=== PATIENT | female | born 1995 | race Caucasian/White ===

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

== ENCOUNTER 2017-02-22 23:23 | Emergency (ER) | payer OTHER ==
[~2017-02-22] VITALS: Ht 175.2 cm; Wt 124.7 kg
[~2017-02-22 23:23] MED LIST changes: +LISINOPRIL20 MG PO
[2017-02-22 23:50] LABS: BASO % 0.4 % (0.0-1.0); EOS # 0.2 10*3/uL (0.0-0.4); EOS % 1.8 % (1.0-4.0); HEMATOCRIT 41.4 % (37.0-47.0); HEMOGLOBIN 13.4 g/dl (12.0-16.0); LYMPH # 2.9 10*3/uL (1.3-4.4); LYMPH % 25.8 % (27.0-41.0); MEAN CELL VOLUME 80.2 fl (81.0-99.0); MEAN CORPUSCULAR HGB CONC 32.4 g/dl (33.0-37.0); MEAN PLATELET VOLUME 9.6 fl (9.6-12.3); MONO # 0.6 10*3/uL (0.1-1.0); MONO % 5.1 % (3.0-9.0); NEUT # 7.4 10*3/uL (2.3-7.9); NEUT % 66.6 % (47.0-73.0); PLATELET COUNT AUTOMATED 292 10*3/uL (130-400); RED BLOOD COUNT 5.16 10*6/uL (4.10-5.10); RED CELL DISTRI WIDTH 13.9 % (0-14.5); WHITE BLOOD COUNT 11.1 10*3/uL (4.8-10.8)
[2017-02-23 00:03] LABS: PROTHROMBIN TIME 10.1 SECONDS (9.0-12.4)
[2017-02-23 00:08] LABS: ALBUMIN 3.3 gm/dl (3.1-4.5); ALKALINE PHOSPHATASE 95 U/L (45-117); BILIRUBIN, TOTAL 0.3 mg/dl (0.2-1.0); BUN 11 mg/dl (7-24); CARBON DIOXIDE 26 mmol/L (21-32); CHLORIDE 109 mmol/L (98-107); EST GLOM FILT AFRICAN AMERICAN > 60 ml/min; GLUCOSE 96 mg/dL (65-99); POTASSIUM 3.7 mmol/L (3.5-5.1); SGOT/AST 26 IU/L (3-35); SGPT/ALT 54 U/L (12-78); SODIUM 145 mmol/L (136-145); TOTAL PROTEIN 7.3 gm/dL (6.4-8.2)
[2017-02-23 00:09] LABS: TROPONIN I < 0.015 ng/ml (<0.045)
[2017-02-23] MEDS ORDERED: LISINOPRIL20 MG PO (00:16)
[2017-02-23 00:21] LABS: URINE AMPHETAMINES < 1000 (1000ng/ml); URINE BARBITURATES < 200 (200ng/ml); URINE COCAINE < 300 (300ng/ml)
[2017-02-23 00:40] VITALS: BP 140/80
== END 2017-02-23 00:50 | disposition home or self-care (01) ==
LOC: ED 23:23
PROVIDERS: Student in an Organized Health Care Education/Training Program
DX: I15.9 Secondary hypertension, unspecified (principal); R11.0 Nausea; Z79.899 Other long term (current) drug therapy

== ENCOUNTER 2017-03-13 18:26 | Emergency (ER) | payer OTHER ==
[~2017-03-13] VITALS: Wt 124.7 kg
[2017-03-13 18:33] VITALS: BP 142/102
== END 2017-03-13 19:30 | disposition home or self-care (01) ==
LOC: ED 18:26
DX: Z32.02 Encounter for pregnancy test, result negative (principal)

== ENCOUNTER → 2017-03-23 | Outpatient (CLI) | payer OTHER ==
[2017-03-24 08:14] LABS: HEPATITIS C VIRUS ANTIBODY 0.2 (0.0-0.9); HIV 1+2 AB + HIV1 P24 AG Non Reactive (Non Reactive)
== END | disposition home or self-care (01) ==
LOC: LAB 13:42
PROVIDERS: Pediatrics
DX: M25.474 Effusion, right foot (principal); A64 Unspecified sexually transmitted disease

== ENCOUNTER 2017-08-23 23:30 | Emergency (ER) | payer SELFPAY ==
[~2017-08-23] VITALS: Ht 172.7 cm; Wt 122.5 kg
[2017-08-23 23:39] VITALS: BP 150/95
[2017-08-24 00:39] LABS: BILIRUBIN NEGATIVE (NEGATIVE); BLOOD 3+ (NEGATIVE); CLARITY SL CLOUDY (CLEAR); COLOR YELLOW (YELLOW); GLUCOSE NEGATIVE (NEGATIVE); KETONE TRACE (NEGATIVE); LEUKO ESTERASE NEGATIVE (NEGATIVE); NITRITE NEGATIVE (NEGATIVE); PH 5.5 (5.0-9.0); UROBILINOGEN 0.2 E.U./dl (0.2-1.0)
[2017-08-24 00:45] LABS: BACTERIA 2+; RBC 51-100 rbc/hpf (0-2)
[2017-08-24 00:46] LABS: CALCIUM OXALATE CRYSTALS 1+
== END 2017-08-24 01:04 | disposition home or self-care (01) ==
LOC: ED 23:30
PROVIDERS: Emergency Medicine
DX: Z32.02 Encounter for pregnancy test, result negative (principal); I10 Essential (primary) hypertension; Z79.899 Other long term (current) drug therapy

== ENCOUNTER 2017-12-17 06:37 | Emergency (ER) | payer SELFPAY ==
[~2017-12-17] VITALS: Ht 172.7 cm; Wt 124.7 kg
[2017-12-17 07:39] VITALS: BP 147/95
[2017-12-17 07:43] LABS: BILIRUBIN NEGATIVE (NEGATIVE); BLOOD NEGATIVE (NEGATIVE); CLARITY CLEAR (CLEAR); COLOR YELLOW (YELLOW); GLUCOSE NEGATIVE (NEGATIVE); KETONE NEGATIVE (NEGATIVE); LEUKO ESTERASE NEGATIVE (NEGATIVE); NITRITE NEGATIVE (NEGATIVE); SPECIFIC GRAVITY 1.025 (1.005-1.030); UROBILINOGEN 0.2 E.U./dl (0.2-1.0)
[2017-12-17 07:51] LABS: BACTERIA 2+
[2017-12-17] MEDS ORDERED: TAMIFLU 75MG CA75 MG PO (08:23)
== END 2017-12-17 08:28 | disposition home or self-care (01) ==
LOC: ED 06:37
PROVIDERS: Family Medicine
DX: J10.1 Influenza due to other identified influenza virus with other respiratory manifestations (principal); I10 Essential (primary) hypertension; Z79.899 Other long term (current) drug therapy

== ENCOUNTER → 2018-01-20 | Emergency (ER) | payer SELFPAY ==
[~2018-01-20] VITALS: Ht 172.7 cm; Wt 124.7 kg
[~2018-01-20] MED LIST changes: +TAMIFLU 75MG CA75 MG PO
[2018-01-20 12:11] VITALS: BP 144/79
== END ==
LOC: ED 12:06
DX: O10.911 Unspecified pre-existing hypertension complicating pregnancy, first trimester (principal); O99.211 Obesity complicating pregnancy, first trimester; E66.01 Morbid (severe) obesity due to excess calories; Z3A.01 Less than 8 weeks gestation of pregnancy; Z68.41 Body mass index [BMI] 40.0-44.9, adult; Z79.899 Other long term (current) drug therapy

== ENCOUNTER 2018-02-03 08:15 | Emergency (ER) | payer OTHER ==
[~2018-02-03] VITALS: Ht 172.7 cm; Wt 136.1 kg
[2018-02-03 08:19] VITALS: BP 135/69
[2018-02-03] MEDS ORDERED: PRENATAL TABLE1 EAC2 PO (08:24)
[2018-02-03 08:32] LABS: BASO % 0.4 % (0.0-1.0); EOS # 0.1 10*3/uL (0.0-0.4); EOS % 1.4 % (1.0-4.0); HEMATOCRIT 39.2 % (37.0-47.0); HEMOGLOBIN 12.8 g/dl (12.0-16.0); LYMPH # 2.9 10*3/uL (1.3-4.4); LYMPH % 37.8 % (27.0-41.0); MEAN CELL VOLUME 80.8 fl (81.0-99.0); MEAN CORPUSCULAR HGB 26.4 pg (27.0-31.0); MEAN CORPUSCULAR HGB CONC 32.7 g/dl (33.0-37.0); MEAN PLATELET VOLUME 9.4 fl (9.6-12.3); MONO # 0.4 10*3/uL (0.1-1.0); MONO % 5.1 % (3.0-9.0); NEUT # 4.2 10*3/uL (2.3-7.9); NEUT % 54.9 % (47.0-73.0); PLATELET COUNT AUTOMATED 256 10*3/uL (130-400); RED BLOOD COUNT 4.85 10*6/uL (4.10-5.10); RED CELL DISTRI WIDTH 13.9 % (0-14.5); WHITE BLOOD COUNT 7.7 10*3/uL (4.8-10.8)
[2018-02-03 08:46] LABS: BUN 8 mg/dl (7-24); CHLORIDE 105 mmol/L (98-107); CREATININE 0.53 mg/dL (0.55-1.02); POTASSIUM 3.8 mmol/L (3.5-5.1); SODIUM 139 mmol/L (136-145)
[2018-02-03 08:54] LABS: BILIRUBIN NEGATIVE (NEGATIVE); BLOOD NEGATIVE (NEGATIVE); CLARITY SL CLOUDY (CLEAR); COLOR YELLOW (YELLOW); GLUCOSE NEGATIVE (NEGATIVE); KETONE NEGATIVE (NEGATIVE); LEUKO ESTERASE NEGATIVE (NEGATIVE); NITRITE NEGATIVE (NEGATIVE); PH 5.5 (5.0-9.0); SPECIFIC GRAVITY >= 1.030 (1.005-1.030); UROBILINOGEN 0.2 E.U./dl (0.2-1.0)
[2018-02-03 09:25] LABS: BACTERIA 1+; EPITHELIAL CELLS 31-40; WBC 21-30 wbc/hpf (0-5)
[2018-02-03] MEDS ORDERED: KEFLEX250 MG PO (09:41)
== END 2018-02-03 09:46 | disposition home or self-care (01) ==
LOC: ED 08:15
PROVIDERS: Emergency Medicine
DX: O23.41 Unspecified infection of urinary tract in pregnancy, first trimester (principal); O16.1 Unspecified maternal hypertension, first trimester; O99.211 Obesity complicating pregnancy, first trimester; E66.01 Morbid (severe) obesity due to excess calories; Z3A.01 Less than 8 weeks gestation of pregnancy; Z68.41 Body mass index [BMI] 40.0-44.9, adult; Z79.899 Other long term (current) drug therapy

== ENCOUNTER 2018-03-08 05:19 | Emergency (ER) | payer OTHER ==
[~2018-03-08] VITALS: Ht 172.7 cm; Wt 123.8 kg
[2018-03-08 05:19] VITALS: BP 140/94
[~2018-03-08 05:19] MED LIST changes: +KEFLEX250 MG PO; +PRENATAL TABLE1 EAC2 PO
[2018-03-08 05:48] LABS: BILIRUBIN NEGATIVE (NEGATIVE); BLOOD 3+ (NEGATIVE); CLARITY CLEAR (CLEAR); COLOR YELLOW (YELLOW); GLUCOSE NEGATIVE (NEGATIVE); KETONE NEGATIVE (NEGATIVE); LEUKO ESTERASE NEGATIVE (NEGATIVE); NITRITE NEGATIVE (NEGATIVE); SPECIFIC GRAVITY >= 1.030 (1.005-1.030); UROBILINOGEN 0.2 E.U./dl (0.2-1.0)
[2018-03-08 06:02] LABS: RBC TNTC rbc/hpf (0-2)
== END 2018-03-08 08:01 | disposition home or self-care (01) ==
LOC: ED 05:19
PROVIDERS: Emergency Medicine
DX: O9A.211 Injury, poisoning and certain other consequences of external causes complicating pregnancy, first trimester (principal); S31.41XA Laceration without foreign body of vagina and vulva, initial encounter; O16.1 Unspecified maternal hypertension, first trimester; O99.211 Obesity complicating pregnancy, first trimester; Z3A.10 10 weeks gestation of pregnancy; Z79.899 Other long term (current) drug therapy; Z68.41 Body mass index [BMI] 40.0-44.9, adult; X58.XXXA Exposure to other specified factors, initial encounter; Y93.89 Activity, other specified; Y92.89 Other specified places as the place of occurrence of the external cause; Y99.9 Unspecified external cause status

== ENCOUNTER 2018-08-08 18:14 | Emergency (ER) | payer OTHER ==
[~2018-08-08] VITALS: Wt 149.7 kg
[2018-08-08] MEDS ORDERED: ASPIRIN81 M1 PO (18:25)
[2018-08-08] MEDS ORDERED: LABETALOL HCL100 MG PO (18:25)
[2018-08-08 19:38] LABS: BASO % 0.2 % (0.0-1.0); EOS # 0.2 10*3/uL (0.0-0.4); EOS % 1.5 % (1.0-4.0); HEMOGLOBIN 11.7 g/dl (12.0-16.0); LYMPH % 21.1 % (27.0-41.0); MEAN CELL VOLUME 83.3 fl (81.0-99.0); MEAN CORPUSCULAR HGB 27.1 pg (27.0-31.0); MEAN CORPUSCULAR HGB CONC 32.5 g/dl (33.0-37.0); MEAN PLATELET VOLUME 9.2 fl (9.6-12.3); MONO # 0.6 10*3/uL (0.1-1.0); MONO % 4.3 % (3.0-9.0); NEUT # 10.4 10*3/uL (2.3-7.9); NEUT % 72.2 % (47.0-73.0); PLATELET COUNT AUTOMATED 265 10*3/uL (130-400); RED BLOOD COUNT 4.32 10*6/uL (4.10-5.10); RED CELL DISTRI WIDTH 14.5 % (0-14.5); WHITE BLOOD COUNT 14.3 10*3/uL (4.8-10.8)
[2018-08-08 19:53] LABS: ALBUMIN 2.6 gm/dl (3.1-4.5); ALKALINE PHOSPHATASE 109 U/L (45-117); BUN 9 mg/dl (7-24); CHLORIDE 105 mmol/L (98-107); CREATININE 0.52 mg/dL (0.55-1.02); POTASSIUM 3.9 mmol/L (3.5-5.1); SGOT/AST 12 IU/L (3-35); SGPT/ALT 19 U/L (12-78); SODIUM 139 mmol/L (136-145); TOTAL PROTEIN 7.1 gm/dL (6.4-8.2)
[2018-08-08 20:30] LABS: BILIRUBIN NEGATIVE (NEGATIVE); BLOOD NEGATIVE (NEGATIVE); CLARITY SL CLOUDY (CLEAR); COLOR YELLOW (YELLOW); GLUCOSE NEGATIVE (NEGATIVE); KETONE NEGATIVE (NEGATIVE); LEUKO ESTERASE NEGATIVE (NEGATIVE); NITRITE NEGATIVE (NEGATIVE); SPECIFIC GRAVITY >= 1.030 (1.005-1.030); UROBILINOGEN 0.2 E.U./dl (0.2-1.0)
[2018-08-08 21:02] VITALS: BP 130/82
[2018-08-08 21:03] LABS: BACTERIA 2+; EPITHELIAL CELLS 21-30
== END 2018-08-08 21:45 | disposition home or self-care (01) ==
LOC: ED 18:14
PROVIDERS: Nurse Practitioner
DX: O60.03 Preterm labor without delivery, third trimester (principal); Z3A.32 32 weeks gestation of pregnancy; Z79.899 Other long term (current) drug therapy; Z79.82 Long term (current) use of aspirin

== ENCOUNTER 2018-12-23 12:20 | Emergency (ER) | payer SELFPAY ==
[~2018-12-23] VITALS: Ht 172.7 cm; Wt 145.1 kg
[2018-12-23 12:20] VITALS: BP 158/100
[~2018-12-23 12:20] MED LIST changes: +ASPIRIN81 M1 PO; +LABETALOL HCL100 MG PO; +TYLENOL EXTRA500 MG PO
[2018-12-23 12:48] LABS: BILIRUBIN NEGATIVE (NEGATIVE); BLOOD NEGATIVE (NEGATIVE); CLARITY SL CLOUDY (CLEAR); COLOR YELLOW (YELLOW); GLUCOSE NEGATIVE (NEGATIVE); KETONE NEGATIVE (NEGATIVE); LEUKO ESTERASE TRACE (NEGATIVE); NITRITE NEGATIVE (NEGATIVE); SPECIFIC GRAVITY 1.015 (1.005-1.030); UROBILINOGEN 0.2 E.U./dl (0.2-1.0)
[2018-12-23 12:51] LABS: BASO # 0.1 10*3/uL (0.0-0.1); BASO % 0.5 % (0.0-1.0); EOS # 0.1 10*3/uL (0.0-0.4); EOS % 0.7 % (1.0-4.0); HEMATOCRIT 42.7 % (37.0-47.0); HEMOGLOBIN 13.7 g/dl (12.0-16.0); LYMPH % 19.6 % (27.0-41.0); MEAN CELL VOLUME 81.6 fl (81.0-99.0); MEAN CORPUSCULAR HGB 26.2 pg (27.0-31.0); MEAN CORPUSCULAR HGB CONC 32.1 g/dl (33.0-37.0); MEAN PLATELET VOLUME 9.3 fl (9.6-12.3); MONO # 0.4 10*3/uL (0.1-1.0); MONO % 3.7 % (3.0-9.0); NEUT # 7.8 10*3/uL (2.3-7.9); NEUT % 75.1 % (47.0-73.0); PLATELET COUNT AUTOMATED 295 10*3/uL (130-400); RED BLOOD COUNT 5.23 10*6/uL (4.10-5.10); RED CELL DISTRI WIDTH 14.4 % (0-14.5); WHITE BLOOD COUNT 10.3 10*3/uL (4.8-10.8)
[2018-12-23 13:04] LABS: URINE AMPHETAMINES < 1000 (1000ng/ml); URINE BARBITURATES < 200 (200ng/ml); URINE BENZODIAZEPINES < 200 (200ng/ml); URINE CANNABINOIDS (THC) < 50 (50ng/ml); URINE COCAINE < 300 (300ng/ml); URINE METHADONE < 300 (300ng/ml); URINE OPIATES < 300 (300ng/ml)
[2018-12-23 13:04] LABS: ALBUMIN 3.3 gm/dl (3.1-4.5); ALKALINE PHOSPHATASE 107 U/L (45-117); BUN 12 mg/dl (7-24); CHLORIDE 106 mmol/L (98-107); CREATININE 0.71 mg/dL (0.55-1.02); LIPASE 66 U/L (73-393); POTASSIUM 4.1 mmol/L (3.5-5.1); SGOT/AST 51 IU/L (3-35); SGPT/ALT 90 U/L (12-78); SODIUM 140 mmol/L (136-145); TOTAL PROTEIN 7.9 gm/dL (6.4-8.2)
[2018-12-23 13:05] LABS: ETHYL ALCOHOL < 3.0 mg/dl (<3)
[2018-12-23 13:05] LABS: URINE PHENCYCLIDINE < 25 (25ng/ml)
[2018-12-23 13:08] LABS: BACTERIA 2+; EPITHELIAL CELLS 15-20; MUCOUS 1+
[2018-12-23] MEDS ORDERED: ZOFRAN4 MG PO (14:21)
== END 2018-12-23 13:42 | disposition home or self-care (01) ==
LOC: ED 12:20
PROVIDERS: Nurse Practitioner Family
DX: K29.70 Gastritis, unspecified, without bleeding (principal)

== ENCOUNTER 2020-06-17 16:11 | Emergency (ER) | payer OTHER ==
[~2020-06-17] VITALS: Ht 172.7 cm; Wt 160.1 kg
[~2020-06-17 16:11] MED LIST changes: +ZOFRAN4 MG PO
[2020-06-17 16:52] VITALS: BP 148/99
== END 2020-06-17 19:32 | disposition left against medical advice (07) ==
LOC: ED 16:11
DX: M54.9 Dorsalgia, unspecified (principal); Z53.21 Procedure and treatment not carried out due to patient leaving prior to being seen by health care provider; W01.0XXA Fall on same level from slipping, tripping and stumbling without subsequent striking against object, initial encounter; Y93.89 Activity, other specified; Y92.89 Other specified places as the place of occurrence of the external cause; Y99.8 Other external cause status

== ENCOUNTER → 2020-10-13 | Outpatient (CLI) | payer OTHER ==
[~2020-10-13] MED LIST changes: +AUGMENTIN 875-875 MG PO; +IBU800 MG PO
== END | disposition home or self-care (01) ==
LOC: COVID19 11:55
PROVIDERS: ATTEND Internal Medicine
DX: Z20.822 Contact with and (suspected) exposure to COVID-19 (principal)

== ENCOUNTER 2020-11-28 18:11 | Emergency (ER) | payer OTHER ==
[~2020-11-28] VITALS: Ht 175.2 cm; Wt 154.2 kg
[~2020-11-28 18:11] MED LIST changes: -AUGMENTIN 875-875 MG PO; -IBU800 MG PO
[2020-11-28 18:18] VITALS: BP 144/99
[2020-11-28] MEDS ORDERED: AUGMENTIN 875-875 MG PO (18:38)
[2020-11-28] MEDS ORDERED: IBU800 MG PO (18:38)
== END 2020-11-28 19:10 | disposition home or self-care (01) ==
LOC: ED 18:11
DX: K04.7 Periapical abscess without sinus (principal); K08.89 Other specified disorders of teeth and supporting structures; I10 Essential (primary) hypertension; Z79.899 Other long term (current) drug therapy

== ENCOUNTER 2021-01-21 18:54 | Emergency (ER) | payer OTHER ==
[~2021-01-21] VITALS: Wt 149.7 kg
[~2021-01-21 18:54] MED LIST changes: +AUGMENTIN 875-875 MG PO; +IBU800 MG PO
[2021-01-21 19:31] VITALS: BP 131/66
[2021-01-21 20:00] LABS: BILIRUBIN Negative (Negative); BLOOD Negative (Negative); CLARITY Clear (Clear); COLOR Yellow (Yellow); GLUCOSE Negative (Negative); KETONE Negative (Negative); LEUKO ESTERASE 1+ (Negative); NITRITE Negative (Negative); PH 5.5 (4.5-8.0)
[2021-01-21 20:11] LABS: BACTERIA 1+; RBC 0-2 rbc/hpf (0-2); YEAST TRACE
[2021-01-21] MEDS ORDERED: SEPTDS PO (20:23)
[2021-01-21] MEDS ORDERED: PYRIDIUM200 M1 PO (20:23)
== END 2021-01-21 20:45 | disposition home or self-care (01) ==
LOC: ED 18:54
PROVIDERS: Physician Assistant
DX: R30.0 Dysuria (principal); Z79.899 Other long term (current) drug therapy

== ENCOUNTER 2021-03-11 11:30 | Emergency (ER) | payer OTHER ==
[~2021-03-11] VITALS: Ht 175.2 cm; Wt 149.7 kg
[~2021-03-11 11:30] MED LIST changes: +PYRIDIUM200 M1 PO; +SEPTDS PO
[2021-03-11 11:35] VITALS: BP 146/93
[2021-03-11] MEDS ORDERED: AUGMENTIN 875875 MG PO (12:55)
== END 2021-03-11 12:58 | disposition home or self-care (01) ==
LOC: ED 11:30
DX: B34.9 Viral infection, unspecified (principal); J32.8 Other chronic sinusitis; Z79.899 Other long term (current) drug therapy

== ENCOUNTER 2021-05-12 18:47 | Emergency (ER) | payer OTHER ==
[~2021-05-12 18:47] MED LIST changes: +AUGMENTIN 875875 MG PO
[2021-05-12 18:51] VITALS: BP 149/90
[2021-05-12 19:40] LABS: BILIRUBIN Negative (Negative); BLOOD 3+ (Negative); CLARITY Turbid (Clear); COLOR Yellow (Yellow); GLUCOSE Negative (Negative); KETONE Negative (Negative); LEUKO ESTERASE 3+ (Negative); NITRITE Negative (Negative); PH 5.5 (4.5-8.0)
[2021-05-12 19:56] LABS: BACTERIA 1+; RBC TNTC rbc/hpf (0-2); WBC TNTC wbc/hpf (0-5)
[2021-05-12] MEDS ORDERED: CIPRO500 MG PO (20:32)
== END 2021-05-12 20:59 | disposition home or self-care (01) ==
LOC: ED 18:47
PROVIDERS: Internal Medicine
DX: N39.0 Urinary tract infection, site not specified (principal)

== ENCOUNTER 2021-07-04 16:51 | Emergency (ER) | payer OTHER ==
[~2021-07-04 16:51] MED LIST changes: +CIPRO500 MG PO
[2021-07-04 18:13] VITALS: BP 162/98
== END 2021-07-04 20:36 | disposition home or self-care (01) ==
LOC: ED 16:51
DX: R51.9 Headache, unspecified (principal); R42 Dizziness and giddiness; I10 Essential (primary) hypertension; Z32.02 Encounter for pregnancy test, result negative; Z79.2 Long term (current) use of antibiotics; Z79.899 Other long term (current) drug therapy